=== PATIENT | male | born 1970 | race Caucasian/White ===

== ENCOUNTER 2017-04-13 06:26 | Inpatient (IN) ==
--- NOTE | 2017-04-13 06:49 | History & Physical Report ---
Date of Encounter: 04/13/17 Time of Encounter: 06:49 24 Hour HP Update - Instructions Instructions: If the History and Physical is less than 30 days old and was completed prior to A.M. admission and or procedure and has NOT been updated on calendar day of procedure please complete this update prior to performing procedure. - Update Patient reports changes in Medical Condition: No Changes in examination, assessment, or condition: No Changes in Medication: No Preop tests/diagnostics Reviewed: Yes Surgery Remains Indicated: Yes Consent for Planned Operative Procedure(s) Verified: Yes - Pre-Operative Checklist Preoperative Checklist Indicated: No Prophylactic Antibiotic Ordered: Yes Is VTE Prophylaxis Indicated?: Yes
[2017-04-13] MEDS ORDERED: Lidocaine -MPF 2% 2 ML VIAL ONE (06:51)
[2017-04-13] MEDS ORDERED: *HR* Succinylcholine 200 MG/10 ML VIAL IVP ONE (06:51)
[2017-04-13] MEDS ORDERED: Lidocaine -MPF 4% 5 ML AMPUL ONE (06:51)
[2017-04-13] MEDS ORDERED: *HR* Propofol 200 MG/20 ML VIAL IVP ONE (06:52)
[2017-04-13] MEDS ORDERED: *HR* FentaNYL (PF) 100 MCG/2 ML VIAL ONE (06:57)
[2017-04-13] MEDS ORDERED: *HR* Midazolam HCl 2 MG/2 ML VIAL ONE (06:57)
--- NOTE | 2017-04-13 07:10 | Anesthesia Evaluation PreOp ---
Date of Encounter: 04/13/17 Time of Encounter: 07:08 - Past History Planned Operation: l tka Cardiac History: Denies any Significant Hx Pulmonary History: Denies Any Significant HX [employer] History: Denies Any Significant HX Other Medical History: GERD Anesthesia History: No Prior Anesthetic Complications, Past Anesthesia (l shoulder x 2, bilat knee x 2) Alcohol Use: none Drug use: none Medications and Allergies Esomeprazole Magnesium [Nexium] 40 mg PO QPM 04/13/17 [History] Allergies Iodinated Contrast- Oral and IV Dye Allergy (Verified 04/13/17 06:50) See Comments Patient is unsure of reaction- He was told he was allergic- - Meds/Allergy Pre-op Review Medications Reviewed: Yes Allergies Reviewed: Yes Beta Blockers on Current Med List: No Anesthesia Results - Labs Laboratory Tests 04/12/17 04/12/17 04/12/17 08:33 08:33 08:33 Hgb 15.0 Hct 43.0 Plt Count 261 PT 10.6 INR 1.0 APTT 29.4 Sodium 140 Potassium 4.2 Creatinine 0.97 Anesthesia Exam O2 Sat Height 1.7 m Height 1.7 m Weight 96.615 kg Weight 96.615 kg O2 Sat by Pulse Oximetry 96 Vital Signs Temp Pulse Resp BP Pulse Ox 98.5 F 84 18 119/81 96 04/13/17 06:51 04/13/17 06:51 04/13/17 06:51 04/13/17 06:51 04/13/17 06:51 Height: 1.7 Weight: 97 NPO (# of Hours): >8 - HEENT Pupil (Motor): Pupils equal, EOMI Mallampati: I Teeth: Normal Oral Opening: Greater than 3 - [employer] LOC: Oriented [employer] Motor: Normal RUE, Normal LUE, Normal RLE, Normal LLE, Normal Face [employer] Sensory: Normal: RUE, LUE, RLE, LLE, Face - Cardiac Rhythm: Regular Murmur: None - Pulmonary Breath Sounds: bilateral Clear Respiratory Effort: Symmetrical Anesthesia Assess/Plan ASA Score: 2 Modified Britney Scale for Level of Consciousness: Cooperative, oriented, and tranquil Anesthetic Plan: General, Regional Monitoring Plan: Standard Monitors Recovery Plan: PACU
[2017-04-13] MEDS ORDERED: ROPIVACAINE HCL/PF 0.5% 30 ML VIAL ONE (07:17)
[2017-04-13] MEDS ORDERED: Acetaminophen IV 0 MG/0 ML INFUS..BTL ONE (07:18)
[2017-04-13] MEDS ORDERED: Ringers Solution, Lactated 1,000 ML IVC SCH ×2 (07:30→11:33)
[2017-04-13] MEDS ORDERED: CloNIDine Patch 0.1 MG PATCH (WEEKLY) TD SCH (07:30)
[2017-04-13] MEDS ORDERED: Vancomycin 1,500 MG in D5% in Water 250 ML IVPB ONE (07:36)
[2017-04-13] MEDS ORDERED: Lidocaine -MPF 1% 2 ML VIAL ID ONE (07:36)
[2017-04-13] MEDS ORDERED: CeFAZolin Pre 2,000 MG/100 ML 2,000 MG/100 ML BAG IVPB ONE (07:36)
[2017-04-13] MEDS ORDERED: *HR* Midazolam HCl 5 MG/5 ML VIAL IVP ONE (07:37)
[2017-04-13] MEDS ORDERED: Ketamine *HR* 500 MG/10 ML MDV ONE (07:37)
--- NOTE | 2017-04-13 08:45 | Discharge Summary ---
<Laisha Adams - Last Filed: 04/13/17 08:07> Date of Encounter: 04/13/17 - Discharge Diagnosis (1) Arthritis of knee, left Priority: Primary Status: Acute - Discharge Medications Home Medications: Aspirin Enteric Coated [Aspirin EC] 325 mg PO DAILY #21 tablet. 04/13/17 [Rx] Esomeprazole Magnesium [Nexium] 40 mg PO QPM 04/13/17 [History] OxyCODONE Immed Rel [Roxicodone 5 MG] 5 - 10 mg PO Q6HR PRN #40 tablet 04/13/17 [Rx] Allergies/Adverse Reactions: Allergies Iodinated Contrast- Oral and IV Dye Allergy (Verified 04/13/17 06:50) See Comments Patient is unsure of reaction- He was told he was allergic- Primary care physician: PCP ALEKSANDR - Patient Status Disposition: Home, Self-Care Condition: Good - Discharge Instructions [facility] - - Hospital Course Hospital course: Mr. Coon is a 46 year old male - Time Spent with Patient Total time spent providing and/or coordinating discharge services: <Dustin Steinberg - Last Filed: 04/15/17 08:30> Date of Encounter: 04/15/17 Time of Encounter: 08:30 - Discharge Diagnosis (1) Arthritis of knee, left Status: Acute (2) H/O reconstruction of anterior cruciate ligament tear Priority: Primary Status: Acute (3) Complete tear of MCL of knee Priority: Primary Status: Acute Qualifiers: Encounter type: subsequent encounter Laterality: left Qualified Code(s): S83.412D - Sprain of medial collateral ligament of left knee, subsequent encounter Primary care physician: PCP ALEKSANDR - Patient Status Functional capacity at discharge: uses cane/walker Overall status at discharge: patient is progressing back to baseline - Hospital Course Hospital course: Mr. Coon is a 46 year old male The patient had an uneventful postoperative course. They received antibiotics and physical therapy and were discharged in stable condition. There will follow -up in the office in 2 weeks. Aspirin DVT prophylaxis - Time Spent with Patient Total time spent providing and/or coordinating discharge services:
[2017-04-13] MEDS ORDERED: Dexamethasone 4 MG/ML VIAL ONE (08:51)
[2017-04-13] MEDS ORDERED: Ondansetron 4 MG/2 ML VIAL ONE (08:51)
[2017-04-13] MEDS ORDERED: Ketorolac 30 MG/ML VIAL ONE (08:52)
[2017-04-13] MEDS ORDERED: *HR* HYDROmorphone 2 MG/ML SYRINGE ONE (08:54)
[2017-04-13] MEDS ORDERED: *HR* Promethazine 25 MG/ML VIAL IVP PRN (09:02)
--- NOTE | 2017-04-13 09:05 | Anesthesia Procedures ---
Date of Encounter: 04/13/17 Time of Encounter: 08:30 Procedures: Anesthesia - Nerve Block Procedure Date: 04/13/17 Time: 08:30 Allergies/Adv Reactions: IVP dye Pre-op Diagnosis: left knee OA Surgical Procedure: left TKA Checklist: Correct Patient Identifier, Correct procedure, History checked Correct side: Left Blood Thinner: No Monitor Applied: EKG, BP, Pulse Oximetry Supplemental Oxygen via Nasal Cannula (L/min): 4 Sedation: Versed (mg): 5 Sedation: Fentanyl (mcg): 100 Indication: Post Op Analgesia Pre-op Neuro Deficits: No Block Type: Femoral, Other (ipack) Catheter placed: No Sterile Technique: Yes Ultrasound used: Yes Anatomy identified: Yes Visual spread of Local: Yes Neuro Stimulation: Yes (femoral only) Nerve Stimulator Range: 0.2 - 0.4 mA Blood on Needle Aspiration: No Smooth Injection of Local: Yes Pain with Injection of Local: No Needle: 22 x 50 mm Stimuplex (femoral), 21 x 100 mm Stimuplex (echogenic for ipack) Local: Ropivacaine (30mL 0.5% (femoral)), Other (30mL 0.25% bupivacaine + 10mg decadron (ipack), 10mg decadron (femoral)) Volume (cc): 65 Number of Attempts: 1 Complications: None/effective block Vitals: Vital Signs/O2 Sat/Glucose, Most Recent Temp Pulse Resp BP Pulse Ox 98.5 F 68 16 117/99 97 04/13/17 06:51 04/13/17 08:27 04/13/17 08:27 04/13/17 08:27 04/13/17 08:27
--- NOTE | 2017-04-13 09:38 | Orthopedic Operative Note ---
Date of procedure: 04/13/17 Pre-op diagnosis: Left knee arthritis, ACL tear and MCL tear Post-op diagnosis: same Procedure: Procedure: Left Total knee replacement Estimated blood loss: 400 cc Hardware: Metal and Julee replacement Biomet: Femur: 75, 18 x 120 stem Tibia: 75, 16 x 80 stem Julee insert: 12 Patella: 37 Exam Under anesthesia: Full flexion and extension 33 anterior laxity grade 3 valgus laxity Procedural Notes: Patient was MCL tear ACL re-tear grade 3 arthritic changes medial compartment patellofemoral joint. Operative procedure: The patient was brought to the operating room and placed on the operating room table. After general anesthesia was administered the operative knee was examined. Findings were noted in the exam under anesthesia. The operative extremity was prepped and draped in sterile surgical fashion. The patient received IV antibiotics prior to skin incision. A standard midline incision was made centered over the patella. The incision was made through the skin and subcutaneous tissue. A medial parapatellar tendon approach was performed. Care was taken to preserve tissue along the medial aspect of the patella. And to protect the patella tendon. The deep MCL was released off the medial tibia. The infra patella fat pad was excised. Knee was brought into flexion. Patient noted to have recurrent ACL tear, grade 3 wear medial compartment patellofemoral joint. The entry hole was made for the intramedullary femoral guide. The guide was seated in 6 degrees of valgus. Anterior cut was made followed by the distal cut. The PCL the medial and the lateral menisci were excised. The tibia was subluxed forward. The entry hole was made for the intramedullary tibial guide. Guide was seated to resect 2 mm off the more abnormal side. The knee was brought into flexion the distal femur was sized to to a 75 and the femur was reamed to a 18 x 1 20. The femoral guide was seated, the anterior cut was made followed by the posterior condylar cut, followed by the chamfer cuts. The finishing guide was seated the box cut was made. The tibia was sized to a 75 and reamed to a 16 x 80 Trial reduction revealed full extension no varus valgus instability with the appropriate 12 insert. The patella was everted and cut was made at the level of the insertion of the quadriceps and patella tendon. The patella was sized to a 37 the guide was seated and the lug holes are drilled. Trial reduction revealed excellent patella tracking. All trial components were removed all bony surfaces were irrigated. Components were assembled on the back table. The femur was cemented first followed by the tibia. The 12 Julee was seated and secured. The knee was brought into full extension. The patella was cemented and held in place with the patellar holding clamp. After the cement had hardened, the knee sat for 2 minutes with a Betadine saline solution. The knee was then irrigated out with 2 L of pulse irrigation. The extensor mechanism was closed with #2 FiberWire suture and #2 PDS suture. The subcutaneous tissue was then irrigated and closed deep with #1 PDS suture superficially with 0 PDS suture and skin was closed with skin treva The patient was then placed in a sterile dressing and a postoperative brace extubated and transferred to recovery room in stable condition. Anesthesia: CAMELIA Surgeon: Dustin Steinberg Extracting Machine Operator: Laisha Adams Condition: stable Disposition: PACU
[2017-04-13] MEDS ORDERED: *HR* HYDROmorphone (PF) 1 MG/ML SYRINGE ONE ×2 (10:19→10:39)
[2017-04-13] MEDS: *HR* HYDROmorphone (PF) 1 MG/ML SYRINGE IVP PRN ×5 (10:20→22:00)
[2017-04-13 10:49] LABS: Hematocrit 40.6 % (37.5-50.1); Hemoglobin 14.3 g/dL (12.9-16.9)
--- NOTE | 2017-04-13 10:58 | Anesthesia Evaluation Post Op ---
Date of Encounter: 04/13/17 Time of Encounter: 10:58 - Vital Signs Vital Signs: Vital Signs/O2 Sat, Most Current Temp Pulse Resp BP Pulse Ox 97.4 F L 83 16 148/94 98 04/13/17 10:44 04/13/17 10:44 04/13/17 10:44 04/13/17 10:44 04/13/17 10:44 - Lungs Lungs: Clear Ascult./Percussion - Airway Airway: Non-obstructed - Cardiovascular Regular Rate - Mental Status Mental Status: Alert & Oriented, Answers Appropriately - Pain Pain Scale: 0 Pain Scale used: Numeric (1 - 10) - Nausea Vomiting Nausea Vomiting: Not Present - Hydration Hydration: Ice chips, Has not voided - Discharge PostOp Status: Transfer Patient to floor
[2017-04-13] MEDS: Ascorbic Acid 500 MG TABLET PO SCH ×2 (11:15→18:05)
[2017-04-13] MEDS: Multivit/Ca/Min/Fe/FA 1 TAB TABLET PO SCH (11:15)
[2017-04-13] MEDS ORDERED: MOM Conc 10 ML UD.LIQ PO PRN (11:33)
[2017-04-13] MEDS ORDERED: Sennosides 8.6 MG TABLET PO PRN (11:33)
[2017-04-13] MEDS ORDERED: Temazepam 15 MG CAPSULE PO PRN (11:33)
[2017-04-13] MEDS ORDERED: Naloxone 0.4 MG/ML INJ IVP PRN (11:33)
[2017-04-13] MEDS ORDERED: *HR* OxyCODONE Immed Rel 5 MG TABLET PO PRN (11:33)
[2017-04-13] MEDS ORDERED: Ondansetron 4 MG/2 ML VIAL IVP PRN (11:33)
[2017-04-13] MEDS: ceFAZolin 2,000 MG in D5% in Water 100 ML IVPB SCH ×2 (13:39→18:06)
[2017-04-13] MEDS: *HR* OxyCODONE Immed Rel 5 MG TABLET PO PRN ×2 (16:11→20:13)
[2017-04-13] MEDS ORDERED: *HR* Enoxaparin 30 MG/0.3 ML SYRINGE SQ SCH (18:00)
[2017-04-13] MEDS: *HR* Enoxaparin 30 MG/0.3 ML SYRINGE SQ SCH (18:05)
[2017-04-14] MEDS: *HR* OxyCODONE Immed Rel 5 MG TABLET PO PRN ×5 (01:30→22:44)
[2017-04-14] MEDS: *HR* HYDROmorphone (PF) 1 MG/ML SYRINGE IVP PRN ×5 (04:09→21:24)
[2017-04-14 05:34] LABS: Hematocrit 33.7 % (37.5-50.1)
[2017-04-14 05:40] LABS: Hemoglobin 12.1 g/dL (12.9-16.9)
[2017-04-14 05:54] LABS: BUN/Creatinine Ratio 15 (6-26); Blood Urea Nitrogen 13 mg/dL (8-26); Calcium 9.2 mg/dL (8.6-10.8); Carbon Dioxide 25 mEq/L (19-29); Chloride 104 mEq/L (98-109); Glucose 131 mg/dL (70-99); Osmolality,Calculated 286 (280-300); Sodium 137 mEq/L (136-145); eGFR For African Americans > 60 (> 60); eGFR For Non-African Americans > 60 (> 60)
[2017-04-14] MEDS: *HR* Enoxaparin 30 MG/0.3 ML SYRINGE SQ SCH ×2 (06:16→16:29)
--- NOTE | 2017-04-14 08:17 | Orthopedics Progress Note ---
Date of Encounter: 04/14/17 Time of Encounter: 08:17 - Assessment and Plan (1) Arthritis of knee, left Current Visit: Yes Status: Acute Subjective Interval history: Patient was seen this morning doing well without complaints. Afebrile vital signs stable. Operative extremity: Neurovascularly intact Dressing clean dry and intact Calves tender Assessment and plan: Continue with postoperative care Doppler today hematocrit 33 Objective Vital signs: Vital Signs Temp Pulse Resp BP Pulse Ox 04/14/17 07:23 98 F 85 16 124/76 97 04/13/17 23:52 98.8 F 93 17 153/80 97 04/13/17 19:36 98.1 F 94 126/90 97 04/13/17 16:22 98.2 F 95 16 130/86 98 04/13/17 14:30 97.3 F L 98 16 98 04/13/17 14:14 77 16 145/89 97 04/13/17 13:15 97.5 F L 102 16 136/94 04/13/17 12:15 97.4 F L 98 16 141/92 98 04/13/17 11:45 97.3 F L 99 16 156/98 04/13/17 11:15 97.4 F L 94 15 126/88 97 04/13/17 11:04 97.4 F L 77 16 145/89 97 04/13/17 10:54 77 16 140/90 98 04/13/17 10:44 97.4 F L 83 16 148/94 98 04/13/17 10:34 71 16 150/94 95 04/13/17 10:24 72 16 149/94 97 04/13/17 10:14 97.1 F L 66 16 144/95 97 04/13/17 08:27 68 16 117/99 97 04/13/17 08:18 82 16 116/75 94 Intake and Output 04/13/17 04/14/17 04/14/17 23:59 07:59 15:59 Intake Total 1979 750 / 750 Output Total 2149 / 2149 200 / 200 200 / 200 Balance -170 / -170 550 / 550 -200 / -200 Intake: IV Fluids 200 / 200 Ancef 2,000 MG In 200 / 200 Dextrose 5% 100 ML @ 200 mls/hr IVPB Q8HR [facility] Rx#: [id number] Oral 1780 / 1780 750 / 750 Output: Urine 2150 / 2150 200 / 200 200 / 200 Other: Meal clear liquid # Voids 1 - Labs CBC & BMP: 04/14/17 05:02 04/14/17 05:02 Labs: Abnormal lab results Hgb 12.1 g/dL (12.9-16.9) L D 04/14/17 05:02 Hct 33.7 % (37.5-50.1) L 04/14/17 05:02 Glucose 131 mg/dL (70-99) H 04/14/17 05:02 - VTE Documentation of Mechanical Device: Venous foot pump, device Consult Discharge Plan - Plan [facility]errals: [facility] [Primary Care Provider] -
[2017-04-14] MEDS: Multivit/Ca/Min/Fe/FA 1 TAB TABLET PO SCH (08:40)
[2017-04-14] MEDS: Ascorbic Acid 500 MG TABLET PO SCH ×2 (08:40→16:29)
[2017-04-15] MEDS: *HR* HYDROmorphone (PF) 1 MG/ML SYRINGE IVP PRN (03:43)
[2017-04-15 03:54] LABS: Hematocrit 32.9 % (37.5-50.1); Hemoglobin 11.5 g/dL (12.9-16.9)
[2017-04-15 03:55] LABS: BUN/Creatinine Ratio 14 (6-26); Blood Urea Nitrogen 13 mg/dL (8-26); Calcium 9.1 mg/dL (8.6-10.8); Carbon Dioxide 26 mEq/L (19-29); Chloride 102 mEq/L (98-109); Glucose 110 mg/dL (70-99); Osmolality,Calculated 283 (280-300); Potassium 3.9 mEq/L (3.5-4.5); Sodium 136 mEq/L (136-145); eGFR For African Americans > 60 (> 60); eGFR For Non-African Americans > 60 (> 60)
[2017-04-15] MEDS: *HR* Enoxaparin 30 MG/0.3 ML SYRINGE SQ SCH (05:40)
[2017-04-15] MEDS: *HR* OxyCODONE Immed Rel 5 MG TABLET PO PRN ×2 (05:41→10:03)
[2017-04-15 07:01] VITALS: BP 117/86
--- NOTE | 2017-04-15 08:31 | Orthopedics Progress Note ---
Date of Encounter: 04/15/17 Time of Encounter: 08:31 - Assessment and Plan (1) Arthritis of knee, left Current Visit: Yes Status: Acute (2) H/O reconstruction of anterior cruciate ligament tear Current Visit: Yes Status: Acute (3) Complete tear of MCL of knee Current Visit: Yes Status: Acute Qualifiers: Encounter type: subsequent encounter Laterality: left Qualified Code(s): S83.412D - Sprain of medial collateral ligament of left knee, subsequent encounter Subjective Interval history: Patient was seen this morning doing well without complaints. Afebrile vital signs stable. Operative extremity: Neurovascularly intact Dressing clean dry and intact Calves tender Assessment and plan: Continue with postoperative care Doppler negative, discharged today Objective Vital signs: Vital Signs Temp Pulse Resp BP Pulse Ox 04/15/17 07:00 98.4 F 91 16 117/86 98 04/15/17 03:54 98.6 F 94 18 114/82 97 04/14/17 23:22 98.4 F 107 16 118/77 97 04/14/17 21:22 98.9 F 113 17 130/73 95 04/14/17 16:13 98.2 F 81 18 150/84 99 04/14/17 10:55 98.2 F 88 16 133/85 98 Intake and Output 04/14/17 04/15/17 04/15/17 23:59 07:59 15:59 Output Total 500 / 500 625 / 625 Balance -500 / -500 -625 / -625 Output: Urine 500 / 500 625 / 625 - Labs CBC & BMP: 04/15/17 03:08 04/15/17 03:08 Labs: Abnormal lab results Hgb 11.5 g/dL (12.9-16.9) L 04/15/17 03:08 Hct 32.9 % (37.5-50.1) L 04/15/17 03:08 Glucose 110 mg/dL (70-99) H 04/15/17 03:08 - VTE Documentation of Mechanical Device: Venous foot pump, device Consult Discharge Plan - Plan [facility]errals: [facility] [Primary Care Provider] -
[2017-04-15] MEDS: Ascorbic Acid 500 MG TABLET PO SCH (10:04)
[2017-04-15] MEDS: Multivit/Ca/Min/Fe/FA 1 TAB TABLET PO SCH (10:04)
--- NOTE | 2017-04-16 13:46 | Venous Imaging Report ---
LE Venous Duplex Patient Name:Clive Coon Order Number:[id number] Procedure Date:04/14/2017 Date:1970Age:46 yrs Gender:Male Location:[facility] Room #: [id number] Business Continuity Global Director:Kelli Guadalupe Referring MD:Dustin Steinberg MD hydraulic miner:[facility] Bruno MD:Bob Olguin MD , FACS Primary Indications:dvt Secondary Indications: Risk Factors Yes/No knee replacement s/p 1day Yes Impressions: Left lower extremity: normal superficial and deep exam. Right lower extremity: normal contralateral exam. Recommendations: After imaging the patient returned to their room. Findings Venous Duplex Results: Right: Venous imaging of the lower extremity reveals full patency and normal vessel compressibility of the right common femoral. Doppler signals in the evaluated veins were normal. Left: Venous imaging of the lower extremity reveals full patency and normal vessel compressibility of the left distal iliac, left common femoral, left superficial femoral, left popliteal, left posterior tibial, left peroneal, left great saphenous and left lesser saphenous. Doppler signals in the evaluated veins were normal. Prior Study: No prior study available for comparison. Lower Extremity Venous Duplex Side Vein Compress Spontaneous Flow Augment Diameter (cm) Depth (cm) Left Distal Iliac Normal Yes Phasic Yes Left Common Femoral Normal Yes Phasic Yes Left Superficial Femoral Normal Yes Phasic Yes Left Popliteal Normal Yes Phasic Yes Left Posterior Tibial Normal Yes Phasic Yes Left Peroneal Normal Yes Phasic Yes Left Great Saphenous Normal Yes Phasic Yes Left Lesser Saphenous Normal Yes Phasic Yes Right Common Femoral Normal Yes Phasic Yes Updated by Bob Olguin MD, FACS on 04/16/2017 1:40:22 PM Bob Olguin MD electronically signed on 04/16/2017 1:40:36 PM with status of Final
== END 2017-04-15 12:57 | disposition home or self-care (01) | DRG 470 ==
LOC: SAMDAY 06:26 → 3NENU 11:14
PROVIDERS: ADMIT Orthopaedic Surgery; ATTEND Orthopaedic Surgery